=== PATIENT | female | born 1965 | race Caucasian/White ===

== ENCOUNTER 2017-05-13 06:53 | Inpatient (IN) ==
[2017-05-13] MEDS ORDERED: methylPREDNISolone 125 MG/2 ML VIAL IVP ONE (07:02)
[2017-05-13] MEDS ORDERED: Ipratropium/Albuterol Neb 3 ML IH ONE (07:02)
--- NOTE | 2017-05-13 07:17 | Emergency Department Note ---
Disposition Clinical Impression: COPD exacerbation Disposition: Admitted As Inpatient Condition: Good SOB HPI - General Chief Complaint: ED Shortness of Breath/Dyspnea Stated Complaint: SOB Time Seen by Provider: 05/13/17 07:02 Source: patient Mode of arrival: private vehicle Limitations: no limitations Nursing Notes Reviewed: Yes Vital Signs Reviewed: Yes - History of Present Illness 52-year-old female history of COPD who presents to the ER with a chief complaint of shortness of breath. Patient states that she has had shortness of breath as well as a nonproductive cough for the last 2 weeks. States that she was seen by her primary care provider and given a course of antibiotics that she finished last . She denies being on steroids at that time. States that she is continued to have worsening shortness of breath during this time. Denies any fevers. No nausea vomiting or diarrhea. No history of cardiac disease, MD, DVT or PE. She does report that she uses a nebulizer machine at home and last had a treatment just prior to arrival. She does not wear home oxygen. Reports that her granddaughter was recently sick. No other complaints. Pt Subjective Complaint: shortness of breath, cough Onset (ago): week(s) Context: recent illness Severity: severe Consistency/Duration: constant Improves with: nothing Worsens with: nothing Known history of: COPD Associated symptoms: Reports: cough, wheezing. Denies: chest pain, fever, sputum production Treatment prior to arrival: bronchodilator Cough present: Yes Cough Description: Involuntary Cough Frequency: Intermittent Sputum production: No Sputum Amount: None - Related Data Home oxygen amount: none Home Medications Medication Instructions Recorded Confirmed Acetaminophen [Tylenol] 1,000 mg PO Q6HR PRN 03/23/17 05/13/17 Aspirin [Lo-Dose Aspirin EC] 81 mg PO DAILY 03/23/17 05/13/17 Budesonide/Formoterol 160/4.5 2 puff IH BIDR 03/23/17 05/13/17 [Symbicort 160/4.5] Calcium Carbonate/Vitamin D3 1 tab PO DAILY 03/23/17 05/13/17 [Calcium 500-Vit D3 200 Caplet] Escitalopram [Lexapro] 10 mg PO DAILY 03/23/17 05/13/17 Ipratropium/Albuterol Neb [Duoneb] 3 ml IH Q6HR PRN 03/23/17 05/13/17 Levothyroxine [Synthroid] 112 mcg PO 0630 03/23/17 05/13/17 Lisdexamfetamine Dimesylate 60 mg PO QAM 03/23/17 05/13/17 [Vyvanse] Lisinopril [Zestril] 20 mg PO DAILY 03/23/17 05/13/17 Loratadine [Allergy Relief] 10 mg PO DAILY 03/23/17 05/13/17 Mirtazapine [Remeron] 15 mg PO HS 03/23/17 05/13/17 Multivitamin [One Daily Essential] 1 tab PO DAILY 03/23/17 05/13/17 Omeprazole [PriLOSEC] 40 mg PO DAILY 03/23/17 05/13/17 Simvastatin [Zocor] 20 mg PO HS 03/23/17 05/13/17 Varenicline Tartrate [Chantix] 1 mg PO BID 03/23/17 05/13/17 cloNIDine HCl [CloNIDine HCl] 0.1 mg PO TID PRN 03/23/17 05/13/17 hydrOXYzine HCl [Hydroxyzine HCl] 50 mg PO TID PRN 03/23/17 05/13/17 Previous Rx's Medication Instructions Recorded Cholecalciferol (D-3) [Vitamin D] 1,000 unit PO DAILY tab 03/24/17 Allergies Allergy/AdvReac Type Severity Reaction Status Date / Time No Known Allergies Allergy Verified 06/10/16 10:04 All systems ED: reviewed and negative except as stated. Constitutional: Denies: fever, chills Cardiovascular: Reports: chest pain Respiratory: Reports: cough, dyspnea, wheezes Gastrointestinal: Denies: abdominal pain, nausea, vomiting, diarrhea Past Medical History - Past Medical History Attestation: Yes The following information was validated with the patient. Source: patient Medical history: Reports: asthma, cancer, COPD, GERD, hepatitis, hypertension, kidney stones, thyroid disease, other Psychiatric history: Reports: anxiety, ADHD, depression - Social History Smoking Status: Current every day smoker Smokeless Tobacco Status: No Alcohol use: Reports: occasionally Drug use: Reports: none Physical Exam - General Limitations: no limitations General appearance: alert, anxious - Head Head exam: atraumatic, normocephalic, normal inspection - Eye Eye exam: Present: normal appearance, EOMI - ENT ENT exam: normal exam - Neck Neck exam: Present: normal inspection, full ROM - Chest Chest inspection: Present: normal inspection, symmetric chest wall rise - Respiratory Respiratory exam: Present: respiratory distress (Patient has prolonged expiratory phase with accessory muscle use and abdominal breathing with diminished breath sounds bilaterally), wheezes, accessory muscle use, prolonged expiratory phase - Cardiovascular Cardiovascular exam: Present: normal rhythm, tachycardia, normal heart sounds - Abdominal Exam Abdominal exam: Present: soft, Non-Tender. Absent: tenderness, distention, rigidity - Extremities Exam Extremities exam: Present: normal inspection, full ROM - Expanded Upper Extremity Exam Shoulder exam: Present: normal inspection, full ROM Arm exam: Present: normal inspection, full ROM Elbow exam: Present: normal inspection, full ROM Forearm/Wrist exam: Present: normal inspection, full ROM Hand exam: Present: normal inspection, full ROM Vascular exam: Normal: radial pulse - Expanded Lower Extremity Exam Hip/Pelvis exam: Present: normal inspection, full ROM Upper leg exam: Present: normal inspection, full ROM Knee exam: Present: normal inspection, full ROM Lower leg exam: Present: normal inspection, full ROM Ankle exam: Present: normal inspection, full ROM Foot/toe exam: Present: normal inspection, full ROM Neurovascular/Tendon exam: Absent: motor deficit, sensory deficit - Neurological Exam Neurological exam: Present: alert, other (GCS 15. Nonfocal neurologic exam. Moves all extremities equally.) - Psychiatric Psychiatric exam: Present: normal affect, anxious - Skin Skin exam: Present: warm, dry, intact, normal color Course Course Narrative: Patient seen and examined the time of arrival. Reported to be hypoxic in the 70s at triage. Currently 94% on 5 L nasal cannula. Respiratory has been paged for DuoNeb treatments and BiPAP. We will obtain an EKG, chest x-ray as well as labs including troponin. We will give her a course of DuoNeb treatments, IV Solu-Medrol and attempt BiPAP. - Reevaluation(s) Reevaluation #1: Discussed results of imaging and lab work with the patient. She reports feeling better currently on BiPAP. She is satting in the 99% range. She is agreeable with staying in the hospital for continued management. Vital Signs Temperature 98.1 F 05/13/17 06:54 Pulse Rate 114 05/13/17 06:54 Respiratory Rate 24 05/13/17 06:54 Blood Pressure 200/106 05/13/17 06:54 O2 Sat by Pulse Oximetry 91 05/13/17 06:54 Temperature 98.1 F 05/13/17 06:54 Pulse Rate 114 05/13/17 06:54 Respiratory Rate 32 05/13/17 07:15 Blood Pressure 200/106 05/13/17 06:54 O2 Sat by Pulse Oximetry 99 05/13/17 07:15 Oxygen Delivery Oxygen Delivery Room Air Shortness of Breath/Dyspnea - MDM Narrative Medical decision making narrative: 52-year-old female presents to the ER due to shortness of breath and cough for 2 weeks in duration. [place] outpatient management by her primary care provider. Initially hypoxic here in the 70s. Placed on BiPAP with marked improvement. EKG demonstrates sinus tachycardia. Chest x-ray unremarkable for pneumonia. Initial troponin is negative as well. Patient given 3 DuoNeb treatments, placed on BiPAP and given 125 of Solu-Medrol and a milligram of Ativan. Currently satting well and accepted to the hospitalist service for COPD exacerbation. - Lab Data Lab results reviewed: Yes I reviewed the patient's lab results. Result diagrams: 05/13/17 07:04 05/13/17 07:04 Lab Results 05/13/17 05/13/17 05/13/17 Range/Units 07:04 07:04 07:04 WBC 8.8 (4.3-11.1) K/mcL RBC 4.68 (3.82-4.97) M/mcL Hgb 13.2 (11.5-15.4) g/dL Hct 40.4 (35.3-44.9) % MCV 86.3 (83.0-100.0) fL MCH 28.2 (28.0-33.3) pg MCHC 32.7 (31.6-35.5) g/dL RDW 13.4 (11.5-14.5) % Plt Count 423 H (140-400) K/mcL MPV 9.7 (9.4-12.4) fL Immature Gran % Test Not Performed Seg Neutrophils % 34.0 % Lymphocytes % 30.0 % Monocytes % 8.0 % Eosinophils % 28.0 % Basophils % Test Not Performed Neutrophils # 3.0 (1.6-8.9) K/mcL Lymphocytes # 2.6 (0.6-4.6) K/mcL Monocytes # 0.7 (0.0-1.3) K/mcL Eosinophils # 2.5 H (0.0-0.6) K/mcL Basophils # Test Not Performed Reactive Lymphocytes Present A (Not Present) Platelet Estimate Normal (Normal) Sodium 144 (136-145) mEq/L Potassium 4.4 (3.5-4.5) mEq/L Chloride 110 H (98-109) mEq/L Carbon Dioxide 25 (19-29) mEq/L BUN 12 (7-20) mg/dL Creatinine 0.71 (0.57-1.11) mg/dL Est GFR ( Amer) > 60 (> 60) Est GFR (Non-Af Amer) > 60 (> 60) BUN/Creatinine Ratio 17 (6-26) Glucose 108 H (70-99) mg/dL Calculated Osmolality 298 (280-300) Lactic Acid (0.5-2.2) mmol/L Calcium 9.3 (8.6-10.8) mg/dL Troponin I 0.00 (0-0.03) ng/mL B-Natriuretic Peptide (0-100) pg/mL 05/13/17 05/13/17 Range/Units 07:04 07:44 WBC (4.3-11.1) K/mcL RBC (3.82-4.97) M/mcL Hgb (11.5-15.4) g/dL Hct (35.3-44.9) % MCV (83.0-100.0) fL MCH (28.0-33.3) pg MCHC (31.6-35.5) g/dL RDW (11.5-14.5) % Plt Count (140-400) K/mcL MPV (9.4-12.4) fL Immature Gran % Seg Neutrophils % % Lymphocytes % % Monocytes % % Eosinophils % % Basophils % Neutrophils # (1.6-8.9) K/mcL Lymphocytes # (0.6-4.6) K/mcL Monocytes # (0.0-1.3) K/mcL Eosinophils # (0.0-0.6) K/mcL Basophils # Reactive Lymphocytes (Not Present) Platelet Estimate (Normal) Sodium (136-145) mEq/L Potassium (3.5-4.5) mEq/L Chloride (98-109) mEq/L Carbon Dioxide (19-29) mEq/L BUN (7-20) mg/dL Creatinine (0.57-1.11) mg/dL Est GFR ( Amer) (> 60) Est GFR (Non-Af Amer) (> 60) BUN/Creatinine Ratio (6-26) Glucose (70-99) mg/dL Calculated Osmolality (280-300) Lactic Acid 1.2 (0.5-2.2) mmol/L Calcium (8.6-10.8) mg/dL Troponin I (0-0.03) ng/mL B-Natriuretic Peptide 31 (0-100) pg/mL - Radiology Data Radiology results reviewed: Yes I reviewed the patient's radiology results. Chest X-Ray 05/13/17 07:02 IMPRESSION: Normal chest x-ray D/ / Juan House MD / Juan House MD Interpreting Provider: Juan House MD - EKG Data EKG attestation: Yes I reviewed and interpreted this EKG. EKG results narrative: EKG demonstrates motion artifact, sinus tachycardia with a rate of 109. Normal axis. Normal intervals. No gross ST elevations or depressions. Repeat EKG which was obtained that 8:40 AM shows a normal sinus rhythm at [address] or T-wave changes are appreciated. Peter - Peter Situation: Demographics, MOA Background: Presenting Complaint, Relevant PMH, Meds, & Allergies Assessment: Vital Signs, Course and respsone to treatment, Exam Concerns, Patient/Family Expectation, Pertinant Lab Results Recommendation: Barrier(s) to disposition, Recommendation based on pending studies, treatments, or consults Peter Report Given to: Dr. Jameson Green Repor Time: 08:21 Attestation Statement - Attestation Attestation: I examined this patient and my medical decision-making was reviewed with the Resident Physician, Dr. Souza. I agree with the documented findings, disposition and treatment plan as described except to the extent set forth below. This 2-year-old white female with history of COPD who presents to the emergency department this morning with gradually worsening shortness of breath over the past 2-3 days. Patient was found in triage to be hypoxic, tachycardic and tachypneic and in mild respiratory distress. Patient was brought back directly to bed in the ED. Patient was placed on a telemetry monitor, continuous pulse ox , submental oxygen and respiratory was notified. Patient with conversational dyspnea at bedside but denies any chest pain pressure heaviness, no palpitations , no back pain or abdominal pain. Patient denies any diaphoresis, no nausea vomiting or bowel changes. No lightheadedness or syncope. Patient states that she has been having shortness of breath and productive cough with yellow sputum for approximately the last 2 weeks and at that time had been seen by her family practice doctor and started on antibiotics. She was not placed on any steroids but does use an inhaler at home as needed. The patient is not on any home O2. Patient mildly anxious at bedside having difficulty sitting back in the bed. I agree with the patient's physical exam as documented in the chart. Patient received breathing treatment, IV steroids and was placed on BiPAP shortly after arrival due to mild respiratory distress and hypoxia. Patient had full lab evaluation, EKG, and chest x-ray. Initial EKG shows sinus tachycardia with no ischemic changes this was compared to prior EKG and there is no new findings today compared to prior. Laboratory evaluation was within normal limits. Chest x-ray shows no acute infiltrate or effusion. On reevaluation of the patient, she is doing much better at this time vital signs normalized heart rate 91, pulse ox 100% on BiPAP, and she is no longer to. Patient states she is feeling much better and breathing much easier at this time. We will repeat an EKG and discussed admission with the patient and she agrees with this plan. Case was discussed with the hospitalist and patient will be admitted for acute exacerbation of COPD.
[2017-05-13] MEDS ORDERED: *HR* LORazepam 2 MG/ML VIAL IVP ONE (07:24)
[2017-05-13] MEDS ORDERED: 0.9 % Sodium Chloride 1,000 ML IVC ONE (07:25)
[2017-05-13 07:28] LABS: BUN/Creatinine Ratio 17 (6-26); Blood Urea Nitrogen 12 mg/dL (7-20); Calcium 9.3 mg/dL (8.6-10.8); Carbon Dioxide 25 mEq/L (19-29); Chloride 110 mEq/L (98-109); Glucose 108 mg/dL (70-99); Osmolality,Calculated 298 (280-300); Potassium 4.4 mEq/L (3.5-4.5); Sodium 144 mEq/L (136-145); eGFR For African Americans > 60 (> 60); eGFR For Non-African Americans > 60 (> 60)
[2017-05-13 07:35] LABS: Hematocrit 40.4 % (35.3-44.9); Hemoglobin 13.2 g/dL (11.5-15.4); Mean Corpuscular HGB Conc 32.7 g/dL (31.6-35.5); Mean Corpuscular Hemoglobin 28.2 pg (28.0-33.3); Mean Corpuscular Volume 86.3 fL (83.0-100.0); Mean Platelet Volume 9.7 fL (9.4-12.4); Platelet Count 423 K/mcL (140-400); Red Blood Count 4.68 M/mcL (3.82-4.97); Red Cell Distribution Width 13.4 % (11.5-14.5)
[2017-05-13] MEDS ORDERED: *HR* HYDROcodone/Acet 5/325 mg TABLET PO ONE (07:54)
[2017-05-13 08:10] LABS: Eosinophils # 2.5 K/mcL (0.0-0.6); Lymphocytes # 2.6 K/mcL (0.6-4.6); Monocytes # 0.7 K/mcL (0.0-1.3); Platelet Estimate Normal (Normal); Reactive Lymphocytes Present (Not Present)
[2017-05-13] MEDS ORDERED: cloNIDine HCl 0.1 MG TABLET PO PRN (09:15)
[2017-05-13] MEDS ORDERED: hydrOXYzine pamoate 25 MG CAPSULE PO PRN (09:15)
--- NOTE | 2017-05-13 09:22 | Internal Med History&Physical ---
Date of Encounter: 05/13/17 Time of Encounter: 09:20 Assessment and Plan (1) Chest pain Current visit: Yes Status: Acute Patient is having left-sided pleuritic chest pain. D-dimer will be checked. If elevated or without pulmonary embolism. Qualifiers: Qualified Code(s): R07.9 - Chest pain, unspecified (2) COPD exacerbation Current visit: Yes Status: Acute Was sufficient and IV steroids, q4h nebulizer treatment and azithromycin for acute bronchitis. Patient is full code. Internal Medicine - H&P: HPI Chief complaint: sob History of present illness: Ms. Mancia is a 52 year old female with history of COPD not on home oxygen presents to the emergency room today with a new complaint of shortness of breath. For the past 2 weeks patient has been noticing progressive shortness of breath to the point where she short of breath with any minimal exertion. She has been having nonproductive cough chest wheezing. She has also been having left-sided chest pain that would worsen with deep inspiration or coughing. She has subjective chills. She denies prior history of DVT or pulmonary embolism. No lower extremity edema orthopnea. She mentioned that she had just completed a course of antibiotics on provided by her PCP. Past Med Surg Social Fam HX - Past Medical History Medical history: asthma, cancer, COPD, GERD, hepatitis, hypertension, kidney stones, thyroid disease, other Psychiatric history: anxiety, ADHD, depression - Social History Smoking Status: Current every day smoker Smokeless Tobacco Status: No Alcohol use: occasionally Drug use: none - Family History Mother Living Status: Hx Family Cardiac Disorders: Yes Internal Medicine - H&P: Meds Acetaminophen [Tylenol] 1,000 mg PO Q6HR PRN 03/23/17 [History] Aspirin [Lo-Dose Aspirin EC] 81 mg PO DAILY 03/23/17 [History] Budesonide/Formoterol 160/4.5 [Symbicort 160/4.5] 2 puff IH BIDR 03/23/17 [ History] Calcium Carbonate/Vitamin D3 [Calcium 500-Vit D3 200 Caplet] 1 tab PO DAILY [History] Escitalopram [Lexapro] 10 mg PO DAILY 03/23/17 [History] Ipratropium/Albuterol Neb [Duoneb] 3 ml IH Q6HR PRN 03/23/17 [History] Levothyroxine [Synthroid] 112 mcg PO 0630 03/23/17 [History] Lisdexamfetamine Dimesylate [Vyvanse] 60 mg PO QAM 03/23/17 [History] Lisinopril [Zestril] 20 mg PO DAILY 03/23/17 [History] Loratadine [Allergy Relief] 10 mg PO DAILY 03/23/17 [History] Mirtazapine [Remeron] 15 mg PO HS 03/23/17 [History] Multivitamin [One Daily Essential] 1 tab PO DAILY 03/23/17 [History] Omeprazole [PriLOSEC] 40 mg PO DAILY 03/23/17 [History] Simvastatin [Zocor] 20 mg PO HS 03/23/17 [History] Varenicline Tartrate [Chantix] 1 mg PO BID 03/23/17 [History] cloNIDine HCl [CloNIDine HCl] 0.1 mg PO TID PRN 03/23/17 [History] hydrOXYzine HCl [Hydroxyzine HCl] 50 mg PO TID PRN 03/23/17 [History] Cholecalciferol (D-3) [Vitamin D] 1,000 unit PO DAILY tab 03/24/17 [Rx] 3 Allergy/AdvReac Type Severity Reaction Status Date / Time No Known Allergies Allergy Verified 06/10/16 10:04 All Systems PM: A 10-system review of systems was performed and is negative for pertinent findings except as documented above in the HPI. Review of systems: 10 point review of systems is negative except for HPI - Constitutional Vitals: Temp Pulse Resp BP Pulse Ox 98.1 F 114 32 200/106 99 05/13/17 06:54 05/13/17 06:54 05/13/17 07:15 05/13/17 06:54 05/13/17 07:15 Exam: Gen.: patient is alert oriented times 3 not in distress. Cardiac: normal S1 S2 no additional sounds are murmurs. Chest: slightly diminished air entry. scattered expiratory wheeze Abdomen: soft nontender nondistended. Lower extremity no swelling mucous membranes: moist Internal Med - H&P Results - Labs CBC & Chem 7: 05/13/17 07:04 05/13/17 07:04
[2017-05-13] MEDS: Budesonide/Formoterol 160/4.5 MDI IH SCH ×2 (11:37→19:39)
[2017-05-13] MEDS: Ipratropium/Albuterol Neb 3 ML IH SCH ×4 (11:37→23:45)
[2017-05-13] MEDS: methylPREDNISolone 125 MG/2 ML VIAL IVP SCH ×2 (13:48→18:23)
[2017-05-13] MEDS: *HR* Heparin 5,000 UNIT/ML VIAL SQ SCH ×2 (13:49→20:42)
[2017-05-13] MEDS ORDERED: *HR* Morphine 2 MG/ML SYRINGE IVP ONE (17:02)
[2017-05-13] MEDS ORDERED: Doxycycline 100 MG in 0.9 % Sodium Chloride Mini Bag 100 ML IVPB SCH (18:00)
[2017-05-13] MEDS: Doxycycline 100 MG CAPSULE PO SCH (18:23)
[2017-05-13] MEDS: Mirtazapine 15 MG TABLET PO SCH (20:41)
[2017-05-13] MEDS ORDERED: *HR* Enoxaparin 80 MG/0.8 ML SYRINGE SQ STA (21:00)
--- NOTE | 2017-05-13 21:04 | Event Note ---
Date of Encounter: 05/13/17 Time of Encounter: 21:03 Called by RN stating patient complaining of severe pleuritic chest pain and increased SOB. I ordered STAT CTA chest to rule out PE and a one time dose of Lovenox at 1 mg/kg. Will follow up with patient and RN.
[2017-05-13] MEDS ORDERED: Albuterol 2.5 MG/3 ML NEBULIZER IH PRN (22:49)
--- NOTE | 2017-05-13 22:50 | Event Note ---
Date of Encounter: 05/13/17 Time of Encounter: 22:49 CTA negative for PE. Will resume Heparin SQ prophylaxis and stop Lovenox.
[2017-05-14] MEDS: methylPREDNISolone 125 MG/2 ML VIAL IVP SCH ×5 (00:02→23:00)
[2017-05-14] MEDS: *HR* OxyCODONE Immed Rel 5 MG TABLET PO PRN ×4 (00:38→21:38)
[2017-05-14 01:41] LABS: Adenovirus Not Detected (Not Detect); Bordetella Pertussis Not Detected (Not Detect); Chlamydophila pneumoniae Not Detected (Not Detect); Coronavirus 229E Not Detected (Not Detect); Coronavirus HKU1 Not Detected (Not Detect); Coronavirus NL63 Not Detected (Not Detect); Coronavirus OC43 Not Detected (Not Detect); Human Metapneumovirus Not Detected (Not Detect); Human Rhinovirus/Enterovirus Not Detected (Not Detect); Influenza A Subtype 2009 H1 Not Detected (Not Detect); Influenza A Untypeable Not Detected (Not Detect); Influenza B Not Detected (Not Detect); Mycoplasma pneumoniae Not Detected (Not Detect); Parainfluenza Virus 1 Not Detected (Not Detect); Parainfluenza Virus 2 Not Detected (Not Detect); Parainfluenza Virus 3 Not Detected (Not Detect); Parainfluenza Virus 4 Not Detected (Not Detect); Respiratory Syncytial Virus Not Detected (Not Detect)
[2017-05-14] MEDS: Ipratropium/Albuterol Neb 3 ML IH SCH ×6 (03:40→23:55)
[2017-05-14] MEDS: Doxycycline 100 MG CAPSULE PO SCH (05:58)
[2017-05-14] MEDS: *HR* Heparin 5,000 UNIT/ML VIAL SQ SCH ×2 (06:20→18:03)
[2017-05-14] MEDS: Loratadine 10 MG TABLET PO SCH (08:00)
[2017-05-14] MEDS: Aspirin Enteric Coated 81 MG Tablet PO SCH (08:01)
[2017-05-14] MEDS: Budesonide/Formoterol 160/4.5 MDI IH SCH ×2 (08:06→19:50)
[2017-05-14] MEDS ORDERED: Lisinopril 20 MG TABLET PO SCH (09:00)
[2017-05-14] MEDS ORDERED: VYVANSE 60 MG PO SCH (09:00)
--- NOTE | 2017-05-14 13:49 | Internal Med Progress Note ---
Date of Encounter: 05/14/17 Time of Encounter: 13:47 - Assessment and plan (1) Acute respiratory failure with hypoxia Current Visit: Yes Status: Acute Assessment and plan: acute hypoxic resp failure 2ry to acute copd exacerbation due to acute bacterial bronchitis/sinusitis negative viral panel CT chowed no PE discontinue doxycyline, start Augmentin continue solumedrol , duonebs , oxygen (2) Sinusitis Current Visit: Yes Status: Acute Qualifiers: Sinusitis location: frontal Chronicity: acute Recurrence: recurrent Qualified Code(s): J01.11 - Acute recurrent frontal sinusitis (3) Throat cancer Current Visit: Yes Status: Acute Assessment and plan: hx of throat cancer (4) HTN (hypertension) Current Visit: Yes Status: Acute Assessment and plan: discontinue lisinopril (cough) start losartan, takes clonidine PRN at home Qualifiers: Hypertension type: essential hypertension Qualified Code(s): I10 - Essential (primary) hypertension (5) COPD exacerbation Current Visit: Yes Status: Acute (6) Chest pain Current Visit: Yes Status: Acute Assessment and plan: pleuritic pain due to cough Qualifiers: Qualified Code(s): R07.9 - Chest pain, unspecified - Subjective Interval history: coghing constantly, green phlegm , headache, sinus symptoms, pleuritic chest pain , no fever. - Constitutional Vitals: Temp Pulse Resp BP Pulse Ox 98.0 F 99 16 140/80 100 05/14/17 10:40 05/14/17 10:40 05/14/17 11:09 05/14/17 10:40 05/14/17 11:09 General appearance: Present: A&O X 3 - Head Head exam: Present: atraumatic, normocephalic - Eye Eye exam: Present: PERRL, conjuntiva pink, sclera anicteric Pupils: Present: PERRL - Neck Neck exam general surgery: Present: supple, trachea midline. Absent: lymphadenopathy - Respiratory Respiratory exam: Present: CTAB, rales, wheezes (diffuse). Absent: accessory muscle use, rhonchi - Cardiovascular Cardiovascular exam: Present: RRR, +S1, +S2. Absent: diastolic murmur, gallop, rubs, systolic murmur - GI/Abdominal GI/Abdominal exam: Present: normal bowel sounds, soft, no peritoneal signs. Absent: distended, tenderness - Extremities Exam Extremities exam: Present: warm, radial pulses palpable and symmetrical. Absent : calf tenderness, cyanotic, pedal edema - Neurological Exam Neurological exam: Present: CN II-XII intact, oriented X3, no focal deficits. Absent: pronater drift, facial droop, speech deficit - Skin Skin exam: Present: dry, intact Internal Medicine: Result - Labs CBC & Chem 7: 05/13/17 07:04 05/13/17 07:04 Labs: Cardiac Enzymes 05/13/17 Range/Units 18:55 Troponin I 0.03 (0-0.03) ng/mL - ABG Interpretation ABG results: PT/INR, D-dimer D-Dimer 477 ng/mLFEU (0-500) 05/13/17 09:26 - Impressions Impressions Chest CTA 05/13/17 21:00 IMPRESSION: 1. Limited exam with no definite evidence for pulmonary embolus. 2. Coronary artery disease. 3. Emphysema. D/ / Felice Campos MD / Felice Campos MD Interpreting Provider: Felice Campos MD Consult Discharge Plan - Plan Referrals: Margot Varner, [facility] [employer] [Primary Care Provider] -
[2017-05-14] MEDS: Benzonatate 100 MG CAPSULE PO PRN ×2 (15:17→21:38)
--- NOTE | 2017-05-14 18:57 | Electrocardiograph Report ---
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
--- NOTE | 2017-05-14 18:58 | Electrocardiograph Report ---
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
[2017-05-14] MEDS: Mirtazapine 15 MG TABLET PO SCH (21:38)
[2017-05-15] MEDS: Ipratropium/Albuterol Neb 3 ML IH SCH ×2 (04:41→07:30)
[2017-05-15] MEDS: methylPREDNISolone 125 MG/2 ML VIAL IVP SCH (06:06)
[2017-05-15] MEDS: *HR* OxyCODONE Immed Rel 5 MG TABLET PO PRN (06:07)
[2017-05-15] MEDS: *HR* Heparin 5,000 UNIT/ML VIAL SQ SCH (06:11)
[2017-05-15 07:10] VITALS: BP 122/72
[2017-05-15 07:24] LABS: Hemoglobin 12.1 g/dL (11.5-15.4); Mean Corpuscular HGB Conc 32.7 g/dL (31.6-35.5); Mean Corpuscular Hemoglobin 28.3 pg (28.0-33.3); Mean Corpuscular Volume 86.7 fL (83.0-100.0); Platelet Count 398 K/mcL (140-400); Red Blood Count 4.27 M/mcL (3.82-4.97); Red Cell Distribution Width 14.1 % (11.5-14.5)
[2017-05-15] MEDS: Budesonide/Formoterol 160/4.5 MDI IH SCH (07:29)
[2017-05-15 07:30] LABS: BUN/Creatinine Ratio 30 (6-26); Blood Urea Nitrogen 19 mg/dL (7-20); Calcium 9.6 mg/dL (8.6-10.8); Carbon Dioxide 25 mEq/L (19-29); Chloride 112 mEq/L (98-109); Glucose 88 mg/dL (70-99); Osmolality,Calculated 300 (280-300); Potassium 4.1 mEq/L (3.5-4.5); Sodium 144 mEq/L (136-145); eGFR For African Americans > 60 (> 60); eGFR For Non-African Americans > 60 (> 60)
[2017-05-15] MEDS: Loratadine 10 MG TABLET PO SCH (07:56)
[2017-05-15] MEDS: Aspirin Enteric Coated 81 MG Tablet PO SCH (07:56)
[2017-05-15] MEDS: Benzonatate 100 MG CAPSULE PO PRN (08:01)
--- NOTE | 2017-05-15 08:41 | Discharge Summary ---
Date of Encounter: 05/15/17 Time of Encounter: 08:35 - Discharge Diagnosis (1) Acute respiratory failure with hypoxia Priority: Primary Status: Acute Comments: acute hypoxic resp failure 2ry to acute copd exacerbation due to acute bacterial bronchitis/sinusitis (2) Sinusitis Priority: Secondary Status: Acute Qualifiers: Sinusitis location: frontal Chronicity: acute Recurrence: recurrent Qualified Code(s): J01.11 - Acute recurrent frontal sinusitis (3) Throat cancer Priority: Secondary Status: Acute (4) HTN (hypertension) Priority: Secondary Status: Acute Qualifiers: Hypertension type: essential hypertension Qualified Code(s): I10 - Essential (primary) hypertension (5) COPD exacerbation Priority: Primary Status: Acute (6) Chest pain Priority: Secondary Status: Acute Qualifiers: Chest pain type: pleurodynia Qualified Code(s): R07.81 - Pleurodynia - Discharge Medications Prescriptions: Amoxicillin/Clavulanate [Augmentin] 875 mg PO BIDWM #12 tablet Benzonatate [Tessalon] 100 mg PO TID PRN #30 capsule PRN Reason: Cough Losartan [Cozaar] 50 mg PO DAILY #30 tablet predniSONE [PredniSONE] 10 mg PO DAILY 12 Days tablet Home Medications: Acetaminophen [Tylenol] 1,000 mg PO Q6HR PRN 03/23/17 [History] Aspirin [Lo-Dose Aspirin EC] 81 mg PO DAILY 03/23/17 [History] Budesonide/Formoterol 160/4.5 [Symbicort 160/4.5] 2 puff IH BIDR 03/23/17 [ History] Calcium Carbonate/Vitamin D3 [Calcium 500-Vit D3 200 Caplet] 1 tab PO DAILY [History] Escitalopram [Lexapro] 10 mg PO DAILY 03/23/17 [History] Ipratropium/Albuterol Neb [Duoneb] 3 ml IH Q6HR PRN 03/23/17 [History] Levothyroxine [Synthroid] 112 mcg PO 0630 03/23/17 [History] Lisdexamfetamine Dimesylate [Vyvanse] 60 mg PO QAM 03/23/17 [History] Loratadine [Allergy Relief] 10 mg PO DAILY 03/23/17 [History] Mirtazapine [Remeron] 15 mg PO HS 03/23/17 [History] Multivitamin [One Daily Essential] 1 tab PO DAILY 03/23/17 [History] Omeprazole [PriLOSEC] 40 mg PO DAILY 03/23/17 [History] Simvastatin [Zocor] 20 mg PO HS 03/23/17 [History] Varenicline Tartrate [Chantix] 1 mg PO BID 03/23/17 [History] cloNIDine HCl [CloNIDine HCl] 0.1 mg PO TID PRN 03/23/17 [History] hydrOXYzine HCl [Hydroxyzine HCl] 50 mg PO TID PRN 03/23/17 [History] Cholecalciferol (D-3) [Vitamin D] 1,000 unit PO DAILY tab 03/24/17 [Rx] Amoxicillin/Clavulanate [Augmentin] 875 mg PO BIDWM #12 tablet 05/15/17 [Rx] Benzonatate [Tessalon] 100 mg PO TID PRN #30 capsule 05/15/17 [Rx] Losartan [Cozaar] 50 mg PO DAILY #30 tablet 05/15/17 [Rx] predniSONE [PredniSONE] 10 mg PO DAILY 12 Days tablet 05/15/17 [Rx] Allergies/Adverse Reactions: 3 Allergy/AdvReac Type Severity Reaction Status Date / Time No Known Allergies Allergy Verified 06/10/16 10:04 Procedures/tests Complete & Pending: Procedures Performed prior 72 hours Category Date Time Status CT angio chest [CT] Stat Cat Scan 05/13/17 21:00 Completed Date of admission: 05/13/17 12:47 Primary care physician: Margot Varner CNP - Patient Status Disposition: Home, Self-Care Condition: Good Overall status at discharge: patient is back to baseline - Discharge Instructions Follow Up With: Margot Varner CNP [Primary Care Provider] - Additional Instructions: Follow-up with primary care physician within the next 7 days. Continue prednisone taper. Complete 6 more days of Augmentin. Quit smoking. Discontinue lisinopril and start losartan. - Diet and Activity Activity: increase activity as tolerated Diet: low fat, low cholesterol Hospital course: Ms. Mancia is a 52 year old female with history of COPD not on home oxygen, tobacco use, throat cancer in the past, asthma, GERD, hepatitis, hypertension, hypothyroidism who presented to the emergency room with a new complaint of shortness of breath. For the past 2 weeks patient has been noticing progressive shortness of breath with any minimal exertion. She has been having nonproductive cough chest wheezing. She has also been having left-sided chest pain that would worsen with deep inspiration or coughing. She had subjective chills. She denied prior history of DVT or pulmonary embolism. No lower extremity edema orthopnea. She mentioned that she had just completed a course of antibiotics on provided by her PCP. Upon admission her saturation of oxygen dropped to 70%. Had a negative viral panel. CT chowed no PE, showed evidence of emphysema Discontinued doxycyline, started Augmentin. Was continued solumedrol , duonebs , and oxygen. But the cell count increased to 21.1 likely secondary to steroids use, the patient saw much better and is ready to be discharged. Lisinopril was stopped and losartan was started as the patient has been complaining of a chronic cough. Time spent discussing smoking cessation with patient: 3 to 10 minutes - Time Spent with Patient Total time spent providing and/or coordinating discharge services: Greater than 30 minutes (40 min) - Constitutional Vitals: Temp Pulse Resp BP Pulse Ox 98.2 F 72 17 122/72 95 05/15/17 07:09 05/15/17 07:09 05/15/17 07:09 05/15/17 07:09 05/15/17 07:09 General appearance: Present: A&O X 3 - Head Head exam: Present: atraumatic, normocephalic - Eye Eye exam: Present: PERRL, conjuntiva pink, sclera anicteric Pupils: Present: PERRL - Neck Neck exam general surgery: Present: supple, trachea midline. Absent: lymphadenopathy - Respiratory Respiratory exam: Present: decreased breath sounds, CTAB. Absent: accessory muscle use, rales, rhonchi, wheezes - Cardiovascular Cardiovascular exam: Present: RRR, +S1, +S2. Absent: diastolic murmur, gallop, rubs, systolic murmur - GI/Abdominal GI/Abdominal exam: Present: normal bowel sounds, soft, no peritoneal signs. Absent: distended, tenderness - Extremities Exam Extremities exam: Present: warm, radial pulses palpable and symmetrical. Absent : calf tenderness, cyanotic, pedal edema - Neurological Exam Neurological exam: Present: CN II-XII intact, oriented X3, no focal deficits. Absent: pronater drift, facial droop, speech deficit - Skin Skin exam: Present: dry, intact
[2017-05-15] MEDS ORDERED: VYVANSE 60 MG PO SCH (09:00)
[2017-05-15 17:07] LABS: CK-BB (CK isoenzymes) 0 % (0-0); CK-MB (CK isoenzymes) 0 % (0-4); CK-MM (CK-isoenzymes) 100 % (96-100)
[2017-05-17 08:09] LABS: CK Total (Ck Isoenzymes) 166 U/L (20-180)
[2017-05-17 11:59] LABS: CK-BB (CK isoenzymes) 0 % (0-0); CK-MB (CK isoenzymes) 0 % (0-4); CK-MM (CK-isoenzymes) 100 % (96-100)
[2017-05-18 06:26] LABS: CK Total (Ck Isoenzymes) 178 U/L (20-180)
== END 2017-05-15 09:52 | disposition home or self-care (01) | DRG 140 ==
LOC: EMEROO 06:53 → 2ANU 06:53
PROVIDERS: ADMIT Hospitalist; ATTEND Internal Medicine